=== PATIENT | male | born 1980 | race Hispanic/Latino ===

== ENCOUNTER 2016-04-28 12:50 | Emergency (ER) | payer OTHER ==
[~2016-04-28] VITALS: Ht 172.7 cm; Wt 166.9 kg
[~2016-04-28 12:50] MED LIST: BACTRIM,SEPT1 TABLET PO; NOHOMEMEDS; PEN-VEE K,VEET500 MG PO; PERCOCET 5/31 TABLET PO
[2016-04-28 12:54] VITALS: BP 130/105
[2016-04-28] MEDS ORDERED: NAPROSYN500 MG PO (13:11)
== END 2016-04-28 13:27 | disposition home or self-care (01) ==
LOC: EME 12:50
DX: M77.9 Enthesopathy, unspecified (principal); M79.601 Pain in right arm
CPT/HCPCS: 99281; 99283